=== PATIENT | female | born 1975 ===

== ENCOUNTER 2018-05-17 06:09 | Inpatient (IN) | payer BC ==
[2018-05-16 09:53] VITALS: BMI 25.7
[2018-05-17] MEDS ORDERED: Neostigmine 1:1000 (1 mg/ml) Inj ONE (07:43)
[2018-05-17] MEDS ORDERED: cefOXitin IV 1 gm in Dextrose 2 GM/100 ML BAG IVPB ONE (07:43)
[2018-05-17] MEDS ORDERED: Propofol 10 mg/ml Inj (20 ML) ONE (07:43)
[2018-05-17] MEDS ORDERED: Rocuronium 10 mg/ml (5 ml) ONE ×2 (07:43→09:17)
--- NOTE | 2018-05-17 08:03 | CP.PCM.HP ---
History of Present Illness - History of Present Illness History of Present Illness: heavy and painful periods now and hx of fibroids Present on Admission - Present on Admission Any Indicators Present on Admission: No Review of Systems - Constitutional Constitutional: As Per HPI - Reproductive: Female Reproductive:Female: As Per HPI, Dysmenorrhea - Menstruation Menstruation: As Per HPI, Heavy Menses Past Patient History - Past Medical History & Family History Past Medical History?: Yes - Past Social History Smoking Status: Never Smoked Chewing Tobacco Use: No Drugs: Denies - CARDIAC Hx Cardiac Disorders: No - PULMONARY Hx Respiratory Disorders: No - HEENT Hx HEENT Problems: No - RENAL Hx Chronic Kidney Disease: No - ENDOCRINE/METABOLIC Hx Endocrine Disorders: No - HEMATOLOGICAL/ONCOLOGICAL Hx Blood Disorders: No - INTEGUMENTARY Hx Dermatological Problems: No - MUSCULOSKELETAL/RHEUMATOLOGICAL Hx Musculoskeletal Disorders: No - GASTROINTESTINAL Hx Gastrointestinal Disorders: No - GENITOURINARY/GYNECOLOGICAL Hx Genitourinary Disorders: No : 2 Para: 2 - PSYCHIATRIC Hx Psychophysiologic Disorder: No Hx Emotional Abuse: No Hx Physical Abuse: No - SURGICAL HISTORY Hx Surgeries: Yes Hx Section: Yes (x2) Other/Comment: BTL - ANESTHESIA Hx Anesthesia: Yes Hx Anesthesia Reactions: No Hx Malignant Hyperthermia: No Has any member of the family had a problem w/ anesthesia?: No Meds Allergies/Adverse Reactions: Allergies Allergy/AdvReac Type Severity Reaction Status Date / Time erythromycin base Allergy VOMITING Verified 05/17/18 06:36 Physical Exam - Constitutional Appears: No Acute Distress - Head Exam Head Exam: ATRAUMATIC - Neck Exam Neck exam: Positive for: Full Rom - Respiratory Exam Respiratory Exam: NORMAL BREATHING PATTERN - Cardiovascular Exam Cardiovascular Exam: REGULAR RHYTHM - GI/Abdominal Exam GI & Abdominal Exam: Normal Bowel Sounds, Soft Additional comments: old scar - Exam External exam: NORMAL EXTERNAL EXAM Bimanual exam: Uterine Enlargement - Extremities Exam Extremities exam: Positive for: full ROM Additional comments: no edema or calf tenderness - Neurological Exam Neurological exam: Alert, Oriented x3 - Psychiatric Exam Psychiatric exam: Normal Affect, Normal Mood Results - Vital Signs Recent Vital Signs: Last Vital Signs Temp 97.4 F L 05/17/18 07:04 Pulse 54 L 05/17/18 07:08 Resp 20 05/17/18 07:04 BP 118/74 05/17/18 07:04 Pulse Ox 98 05/17/18 07:04 Assessment & Plan (1) Leiomyoma of uterus Status: Chronic (2) Menorrhagia Status: Chronic (3) Dysmenorrhea Status: Chronic - Assessment and Plan (Free Text) Plan: for TJ
[2018-05-17] MEDS ORDERED: Lactated Ringer's 1,000 ML IV ONE ×2 (08:17→10:26)
[2018-05-17] MEDS ORDERED: Lactated Ringer's 1,000 ML IV SCH (10:00)
[2018-05-17] MEDS ORDERED: Lactated Ringer's 500 ML IV ONE ×2 (10:26→11:50)
--- NOTE | 2018-05-17 11:47 | RAD ---
HISTORY: incorrect first count COMPARISON: No prior. FINDINGS: BOWEL: Normal. No obstruction. No free air. BONES: Normal. OTHER FINDINGS: Nonspecific radiopaque material overlying the symphysis pubis ne. IMPRESSION: Nonspecific radiopaque material overlying the symphysis pubis. Correlate clinically.
[2018-05-17] MEDS: HYDROmorphone 0.5 mg/0.5 ml ISec IVP PRN ×3 (12:27→13:28)
[2018-05-17] MEDS ORDERED: HYDROmorphone 0.5 mg/0.5 ml ISec ONE ×3 (12:27→13:28)
[2018-05-17] MEDS: Lactated Ringer's 1,000 ML IV SCH (16:30)
[2018-05-17] MEDS: cefOXitin IV 1 gm in Dextrose 1 GM/50 ML BAG IVPB SCH (17:19)
[2018-05-18] MEDS: cefOXitin IV 1 gm in Dextrose 1 GM/50 ML BAG IVPB SCH ×2 (00:08→08:59)
[2018-05-18] MEDS: Lactated Ringer's 1,000 ML IV SCH ×3 (00:12→18:44)
[2018-05-18 08:03] LABS: HEMOGLOBIN 12.4 g/dL (12.0-16.0); MEAN CELL VOLUME 90.5 fl (81.0-99.0); MEAN CORPUSCULAR HEMOGLOBIN 31.4 pg (27.0-31.0); MEAN CORPUSCULAR HGB CONC 34.6 g/dL (33.0-37.0); RBC 3.94 Mil/uL (3.80-5.20); RED CELL DISTRIBUTION WIDTH 13.3 % (11.5-14.5); WHITE BLOOD COUNT 10.5 K/uL (4.8-10.8)
[2018-05-18] MEDS: Enoxaparin 40 mg Syringe SC SCH (10:39)
--- NOTE | 2018-05-18 12:46 | CP.PCM.PN ---
Subjective - Date & Time of Evaluation Date of Evaluation: 05/18/18 Time of Evaluation: 01:45 - Subjective Subjective: patient feels better today Objective - Vital Signs/Intake and Output Vital Signs (last 24 hours): Temp Pulse Resp BP Pulse Ox 98.9 F 68 16 130/78 98 05/18/18 08:14 05/18/18 08:14 05/18/18 08:14 05/18/18 08:14 05/18/18 08:14 - Medications Medications: Current Medications Enoxaparin Sodium (Lovenox) 40 mg SC DAILY [facility] PRN Reason: Protocol Last Admin: 05/18/18 10:39 Dose: 40 mg Lactated Ringer's (Lactated Ringer's) 1,000 mls @ 125 mls/hr IV .Q8H [facility] Last Admin: 05/18/18 10:39 Dose: 125 mls/hr Ketorolac Tromethamine (Toradol) 30 mg IVP Q6 [facility] Ondansetron HCl (Zofran Inj) 8 mg IVP Q8 PRN PRN Reason: Nausea/Vomiting Last Admin: 05/18/18 05:54 Dose: 8 mg - Labs Labs: 05/18/18 06:40 - Eye Exam Additional comments: v.s stable afebrile Assessment and Plan - Assessment and Plan (Free Text) Assessment: stable pod1 s/p nahid lysis of adhesion Plan: continue present care advance diet as tolerated changed pain meds to toradol 30ml q 6hr
[2018-05-19] MEDS: Lactated Ringer's 1,000 ML IV SCH ×3 (01:53→17:06)
[2018-05-19 08:10] VITALS: BP 131/80
[2018-05-19] MEDS: Enoxaparin 40 mg Syringe SC SCH (08:10)
--- NOTE | 2018-05-19 13:00 | CP.PCM.PN ---
Subjective - Date & Time of Evaluation Date of Evaluation: 05/19/18 Time of Evaluation: 12:58 - Subjective Subjective: passing gas but no bm yet, c/o nausea and no vomiting Denies c/f Not tolerating diet well yet C/o some incisional pain Objective - Vital Signs/Intake and Output Vital Signs (last 24 hours): Temp Pulse Resp BP Pulse Ox 98.3 F 82 16 131/80 97 05/19/18 08:09 05/19/18 08:09 05/19/18 08:09 05/19/18 08:09 05/19/18 08:09 Intake and Output: 05/19/18 05/19/18 06:59 18:59 Intake Total 1850 Balance 1850 - Medications Medications: Current Medications Bisacodyl (Dulcolax) 10 mg DC ONCE ONE Stop: 05/19/18 12:57 Enoxaparin Sodium (Lovenox) 40 mg SC DAILY [facility] PRN Reason: Protocol Last Admin: 05/19/18 08:10 Dose: 40 mg Lactated Ringer's (Lactated Ringer's) 1,000 mls @ 125 mls/hr IV .Q8H [facility] Last Admin: 05/19/18 09:14 Dose: 125 mls/hr Ketorolac Tromethamine (Toradol) 30 mg IVP 0500,1100,1700,2300 [facility] Last Admin: 05/19/18 10:53 Dose: 30 mg Ondansetron HCl (Zofran Inj) 8 mg IVP Q8 PRN PRN Reason: Nausea/Vomiting Last Admin: 05/19/18 09:42 Dose: 8 mg - Labs Labs: 05/18/18 06:40 - Constitutional Appears: No Acute Distress - Head Exam Head Exam: ATRAUMATIC - Neck Exam Neck Exam: Full ROM - Respiratory Exam Respiratory Exam: NORMAL BREATHING PATTERN - Cardiovascular Exam Cardiovascular Exam: REGULAR RHYTHM - GI/Abdominal Exam Additional comments: soft not distended depressible but still some tenderness Incision clean and dry no suppt or discharge chelsi in place, no sign of infection. - Exam External exam: NORMAL EXTERNAL EXAM Additional comments: no active vaginal bleeding - Extremities Exam Additional comments: no edema or calf tenderness - Neurological Exam Neurological Exam: Alert, Awake, Oriented x3 - Psychiatric Exam Psychiatric exam: Normal Affect Assessment and Plan (1) Leiomyoma of uterus Status: Chronic (2) Menorrhagia Status: Chronic (3) Dysmenorrhea Status: Chronic - Assessment and Plan (Free Text) Assessment: no bm and not tolerating diet well and post-op pain Plan: Dulcolax suppt this pm and continue diet as tolerated and pain management
[2018-05-19] MEDS ORDERED: Chlorhexidine Gluconate 1 APPL/PKT TP ONE (13:22)
[2018-05-19 13:30] VITALS: O2SAT 98
[2018-05-19 16:02] VITALS: PULSE 86; RESP 18
[2018-05-19 17:58] VITALS: TEMP 99.4
--- NOTE | 2018-05-20 10:55 | OP ---
PROCEDURE DATE: 05/17/2018 PREOPERATIVE DIAGNOSES: 1. Severe menorrhagia and dysmenorrhea. 2. Fibroid uterus. POSTOPERATIVE DIAGNOSES: 1. Severe menorrhagia and dysmenorrhea. 2. Severe pelvic and abdominal adhesions. PROCEDURES PERFORMED: 1. Total abdominal hysterectomy and bilateral salpingectomy. 2. Lysis of adhesion. SURGEON: Patricio Govea MD ASSISTANTS: Dr. Pablo and Dr. Tubbs. Assistants needed in order to provide exposure in opening up the abdomen and removing the uterus and closure of the abdomen. Assistants present during the entire duration of the case. ANESTHESIA USED: General. ANESTHESIA ADMINISTERED BY: Dr. Dorita MD ESTIMATED BLOOD LOSS: 200 mL. DRAINS USED: None. REPLACEMENT USED: None. FINDINGS: 1. Uterus enlarged and bulky to about 14 to 16 weeks' size with multiple fibroids. 2. Adhesions of the omentum to the anterior abdominal and pelvic galdamez, and also adhesions of the bowel to the left side of the uterus and the tubo-ovarian complex and the pelvic wall. 3. Total abdominal hysterectomy and bilateral salpingectomy performed without any complications. 4. Lysis of adhesions performed in order to prevent bowel entrapment in the future. DESCRIPTION OF PROCEDURE: The patient was taken to the operating room and placed on the operating table in a supine position. Following induction of general endotracheal anesthesia, a Simental catheter then was inserted into the bladder and clear fluid was then evacuated from the bladder. Venodyne boots were applied to both legs. Abdomen was then draped and prepped in the usual sterile manner and the vagina was prepped also. At this time, an incision was then made using sharp dissections along the edges of the previous incision. The incision was then extended down to the subcutaneous tissue using sharp dissection. At this time, hemostasis was obtained by means of electrocoagulation. The fascia was then identified, was then entered at the midline. The incision of the fascia was then extended laterally on each direction using sharp dissection. At this time, the rectus muscle was then identified and was then slid at the midline exposing the peritoneum. Peritoneal layer was then picked up using two Bina clamps and retracted superiorly and entered using sharp dissection. The incision was then extended superiorly and inferiorly under direct visualization. Multiple adhesions noted between the omentum and the anterior abdominal wall, some of these adhesions creating spaces, so that the bowel could get entrapped and adhesions were then doubly clamped, cut, and ligated using blunt and sharp dissections and ligated using 0 Vicryl free ties. Following lysis of adhesions, the uterus was then identified, which appears to be bulky and enlarged to about 14-15 weeks' size with multiple fibroids present on the anterior and frontal aspects of the uterus. At this time, we then proceeded to identify the bladder. Bladder was then retracted inferiorly using the [place] retractor and adhesions of the bowel present through the left abdominal wall and through the left tubo-ovarian complex. These adhesions were carefully lysed using blunt and sharp dissection and the bowel was then from the uterus to vagina, ovaries, and pelvic galdamez. Following this, we then proceeded to identify more adhesions present between the omentum and the posterior aspect of the wound, which were then carefully lysed using blunt and sharp dissection. Hemostasis was obtained by means of electrocoagulation and 2-0 Vicryl free ties. Following this,we then proceeded to identify the right round ligament, which were then doubly clamped, cut, and ligated using 0 Vicryl suture. Same procedure was then performed on the contralateral side without any complications. At this time, the anterior low transverse segment of the uterus was identified. The bladder was then incised from this area using blunt and sharp dissection and the bladder pushed down using blunt dissection. Following this, the right infundibulopelvic ligament was identified and the right ovary and remaining section of the tube. At this time, the utero-ovarian ligament was then identified on the right side, was then doubly clamped, cut, and ligated using 0 Vicryl sutures; thus isolating the ovary and tube from the uterus. At this time, the mesosalpinx on that side was then also clamped, cut, and ligated using 0 Vicryl sutures up to the level of the uterine artery. The left side appeared to be adherent of the ovary and the tube to the uterus, and adhesions were then lysed and the uterus was then from the ovary. The left utero-ovarian ligament was then doubly clamped, cut, and ligated also using 0 Vicryl free ties and suture. The mesosalpinx on the left side was also doubly clamped, cut, and ligated also using 0 Vicryl sutures. At this time, the right uterine artery was then identified, was then doubly clamped, cut, and ligated also using 0 Vicryl sutures. Same procedure performed on the contralateral side without any complications. At this time, the bladder was then further pushed down using blunt dissection and the parametrium on the left side was then doubly clamped, cut, and ligated using 0 Vicryl suture. Same procedure performed on the contralateral side without any complications. At this time, the cervicovaginal junction was then reached, and the uterus was then removed by using electrocoagulation from the vaginal vault. Specimen consisted of large fibroid uterus. Cervix was then removed in toto. The vaginal cuff was then held using multiple Allis and Joe clamps and angled sutures were then placed on the right and left vaginal cuff using 0 Vicryl suture in a [id number] manner. The vaginal cuff was then run using an 0 Vicryl suture in a continuous interlocking manner. Hemostasis checked and found to be well secured. Following this, we then proceeded to place a sponge with Betadine in the vagina and push down towards the introital area. The vaginal cuff was then closed using 0 Vicryl suture in a [id number] interrupted manner. At this time, all operative areas checked, hemostatically secured, and the pelvic cavity was then irrigated using saline solution. The right and left portions of the tubes were then clamped using Bina clamps, cut, and ligated using 0 Vicryl sutures, thus removing both distal aspect of the tubes. All operative areas again checked, hemostatically secured, and reperitonealization was then performed using 2-0 chromic suture in a continuous manner. One small area of generalized oozing noted on the right side, and in order to provide security in this area, Surgicel was then placed there and hemostatically the area was secured. Following this, we then proceeded to place an Interceed on the vaginal cuff in order to provide future adhesion-free area. Following this, the abdomen was then closed starting with the peritoneum using 0 Vicryl suture in a continuous manner. Rectus muscle was also approximated in the midline using 0 Vicryl suture in a continuous manner. The fascia was then approximated using 1 Vicryl suture in a continuous manner. Fascia was then checked and found to be free of defects. Subcutaneous tissue was then irrigated using saline solution and approximated using several interrupted 2-0 plain sutures. The skin was then approximated using skin chelsi. At this time, clear fluid noted to be present in the Simental bag and instrument count has been lacking metal forceps and therefore was not correct; possible rule out a miscount. However, in order to obtain security, an x-ray was then performed, and x-ray was reviewed with radiologist. No foreign body noted to be present except for the sponge in the vagina. Sponge in the vagina after x-ray was taken and reviewed was then removed. Count correct concerning sponges and needles. The patient tolerated the procedure well. There were no complications. She was transferred to the recovery room in satisfactory condition. Patricio Govea MD MTDD
== END 2018-05-19 20:20 | disposition home or self-care (01) | DRG 743 ==
LOC: H.OPSURG 06:09 → H.PEDS 12:45 → H.OPSURG 16:45
PROVIDERS: ADMIT Specialist; ATTEND Specialist
PROC: 0UT70ZZ Resection of Bilateral Fallopian Tubes, Open Approach (ICD-10-PCS; 2018-05-17)
PROC: 0DNU0ZZ Release Omentum, Open Approach (ICD-10-PCS; 2018-05-17)
PROC: 0UT90ZZ Resection of Uterus, Open Approach (ICD-10-PCS; principal; 2018-05-17 08:00)
DX: D25.9 Leiomyoma of uterus, unspecified (principal); K66.0 Peritoneal adhesions (postprocedural) (postinfection); N92.0 Excessive and frequent menstruation with regular cycle; N88.8 Other specified noninflammatory disorders of cervix uteri; Z98.891 History of uterine scar from previous surgery